=== PATIENT | female | born 1955 | race African-American/Black ===

== ENCOUNTER 2016-10-03 15:11 | Emergency (ER) | payer OTHER ==
[~2016-10-03] VITALS: Ht 167.6 cm; Wt 70.0 kg
[2016-10-03] MEDS ORDERED: IBUPROFEN 600MG TABLET PO ONE (22:30)
[2016-10-03 22:40] VITALS: BP 138/58
== END 2016-10-03 23:07 | disposition home or self-care (01) ==
LOC: ER 16:19
DX: M54.6 Pain in thoracic spine (principal); F17.200 Nicotine dependence, unspecified, uncomplicated
CPT/HCPCS: 99283